=== PATIENT | male | born 2000 | race African-American/Black ===

== ENCOUNTER 2019-04-14 12:03 | Emergency (ER) | payer OTHER ==
[~2019-04-14] VITALS: Ht 185.4 cm; Wt 76.7 kg
[2019-04-14 12:05] VITALS: BP 116/69
== END 2019-04-14 12:33 | disposition home or self-care (01) ==
LOC: M ED 12:03
DX: Z48.02 Encounter for removal of sutures (principal)

== ENCOUNTER 2019-08-08 10:09 | Emergency (ER) | payer OTHER ==
[~2019-08-08] VITALS: Ht 185.4 cm; Wt 77.3 kg
[2019-08-08 10:09] VITALS: BP 126/62
[2019-08-08] MEDS ORDERED: LIDOCAINE 1% SDV 5 ML VIAL DILUENT ONE (11:30)
[2019-08-08] MEDS ORDERED: AZITHROMYCIN 250 MG TAB PO ONE (11:30)
[2019-08-08] MEDS ORDERED: cefTRIAXone SOD 250 MG VIAL (J0696) IM ONE (11:30)
[2019-08-08 12:48] LABS: CHLAMYDIA DNA AMPLIFICATION POSITIVE (NEGATIVE); GC DNA AMPLIFICATION NEGATIVE (NEGATIVE)
== END 2019-08-08 11:40 | disposition home or self-care (01) ==
LOC: M ED 10:09
DX: Z20.2 Contact with and (suspected) exposure to infections with a predominantly sexual mode of transmission (principal); A56.8 Sexually transmitted chlamydial infection of other sites
CPT/HCPCS: 81001; 87491; 87591; 96372; 99283; J0696

== ENCOUNTER 2021-06-16 14:12 | Emergency (ER) | payer OTHER ==
[~2021-06-16] VITALS: Ht 185.4 cm; Wt 76.5 kg
[2021-06-16 14:12] VITALS: BP 139/92
[2021-06-16] MEDS ORDERED: LIDOCAINE 1% SDV 5ML VIAL DILUENT ONE (15:20)
[2021-06-16] MEDS ORDERED: cefTRIAXone 500MG VIAL (J0696 PER 250MG) IM ONE (15:20)
[2021-06-16] MEDS ORDERED: DOXY1CAP62 PO (15:24)
[2021-06-16 16:42] LABS: GC DNA AMPLIFICATION NEGATIVE (NEGATIVE)
== END 2021-06-16 15:46 | disposition home or self-care (01) ==
LOC: M ED 14:12
DX: R30.0 Dysuria (principal)
CPT/HCPCS: 81001; 87661; 96372; 99282; J0696

== ENCOUNTER 2021-08-09 09:46 | Emergency (ER) | payer OTHER ==
[~2021-08-09] VITALS: Ht 185.4 cm; Wt 75.0 kg
[~2021-08-09 09:46] MED LIST: DOXY1CAP62 PO
[2021-08-09 09:47] VITALS: BP 124/75
== END 2021-08-09 11:30 | disposition home or self-care (01) ==
LOC: M ED 09:46
DX: L50.0 Allergic urticaria (principal)